=== PATIENT | female | born 1990 | race Caucasian/White ===

== ENCOUNTER 2019-05-01 12:46 | Emergency (ER) | payer MEDICAID ==
[~2019-05-01] VITALS: Ht 170.2 cm; Wt 86.2 kg
[~2019-05-01 12:46] MED LIST: PREN27TA7 PO
[2019-05-01 13:23] VITALS: BP 111/76
== END 2019-05-01 14:37 | disposition home or self-care (01) ==
LOC: ER 12:46
DX: M25.571 Pain in right ankle and joints of right foot (principal); Z88.0 Allergy status to penicillin
CPT/HCPCS: 73610

== ENCOUNTER 2019-05-27 01:42 | Emergency (ER) | payer MEDICAID ==
[~2019-05-27] VITALS: Ht 170.2 cm; Wt 93.0 kg
[2019-05-27] MEDS ORDERED: IBUPROFEN 600 MG TAB PO ONE (02:30)
[2019-05-27] MEDS ORDERED: KETOROLAC TROMETH 60MG/2ML VIAL IM ONE (04:15)
[2019-05-27] MEDS ORDERED: methylPREDNISolone SOD SUCC 125 MG/2 ML VL IM ONE (04:15)
[2019-05-27 04:25] VITALS: BP 114/77
== END 2019-05-27 05:10 | disposition home or self-care (01) ==
LOC: ER 01:42
DX: S46.911A Strain of unspecified muscle, fascia and tendon at shoulder and upper arm level, right arm, initial encounter (principal); Z88.0 Allergy status to penicillin; X58.XXXA Exposure to other specified factors, initial encounter; Y93.89 Activity, other specified; Y92.89 Other specified places as the place of occurrence of the external cause; Y99.8 Other external cause status
CPT/HCPCS: 73030; 73060; 96372; 99283; J1885; J2930

== ENCOUNTER 2020-09-22 13:45 | Emergency (ER) | payer MEDICAID ==
[~2020-09-22] VITALS: Ht 170.2 cm; Wt 93.0 kg
[2020-09-22 14:57] LABS: Basophils # (auto) 0 10 ^3/uL (0-0.2); Basophils % (auto) 0.3 % (0.0-2.0); Eosinophils # (auto) 0 10 ^3/uL (0-0.8); Eosinophils % (auto) 0.6 % (0.0-7.0); Hematocrit 42.9 % (36.0-46.0); Hemoglobin 15.1 g/dL (12.2-16.2); Lymphocytes # (auto) 1.6 10 ^3/uL (0.4-5.4); Mean Corpuscular Hemoglobin 32.4 pg (28.0-32.0); Mean Corpuscular Hgb Conc. 35.1 g/dL (32.0-36.0); Mean Corpuscular Volume 92.2 fL (80.0-100.0); Monocytes # (auto) 0.3 10 ^3/uL (0-1.3); Monocytes % (auto) 5.7 % (0.0-12.0); Neutrophils # (auto) 3.5 10 ^3/uL (1.6-8.6); Neutrophils % (auto) 63.4 % (37.0-80.0); Platelet Count (auto) 286 10^3/uL (140-450); Red Blood Cells 4.65 10^6/uL (4.0-5.20); Red Cell Distribution Width 13.8 % (11.8-14.3); White Blood Cell 5.5 10^3/uL (4.4-10.8)
[2020-09-22 15:10] LABS: Albumin 4.3 g/dL (3.4-5.0); Calcium 9.2 mg/dL (8.5-10.1); Potassium 3.8 mmol/L (3.5-5.1)
[2020-09-22 15:13] LABS: BUN/Creatinine Ratio 13.3; Bilirubin, Total 0.9 mg/dL (0.2-1.0); Total Protein 8.4 g/dL (6.4-8.2)
[2020-09-22 15:23] VITALS: BP 138/78
[2020-09-22] MEDS ORDERED: hydrOXYzine 25 MG TAB or CAP PO ONE (15:45)
== END 2020-09-22 16:26 | disposition home or self-care (01) ==
LOC: ER 13:48
DX: F43.0 Acute stress reaction (principal); Z88.0 Allergy status to penicillin; Z79.899 Other long term (current) drug therapy; Z20.822 Contact with and (suspected) exposure to COVID-19
CPT/HCPCS: 36415; 71045; 80053; 84484; 85025; 87426; 93005; 99285; C9803; U0003

== ENCOUNTER 2020-10-08 00:46 | Emergency (ER) | payer MEDICAID ==
[~2020-10-08] VITALS: Ht 170.2 cm; Wt 90.3 kg
[2020-10-08 02:14] LABS: Basophils # (auto) 0 10 ^3/uL (0-0.2); Basophils % (auto) 0.4 % (0.0-2.0); Eosinophils # (auto) 0.1 10 ^3/uL (0-0.8); Hematocrit 39.1 % (36.0-46.0); Hemoglobin 13.5 g/dL (12.2-16.2); Lymphocytes # (auto) 1.7 10 ^3/uL (0.4-5.4); Lymphocytes % (auto) 18.3 % (10.0-50.0); Mean Corpuscular Hemoglobin 31.7 pg (28.0-32.0); Mean Corpuscular Hgb Conc. 34.6 g/dL (32.0-36.0); Mean Corpuscular Volume 91.6 fL (80.0-100.0); Monocytes # (auto) 0.5 10 ^3/uL (0-1.3); Monocytes % (auto) 5.7 % (0.0-12.0); Neutrophils # (auto) 6.9 10 ^3/uL (1.6-8.6); Neutrophils % (auto) 74.6 % (37.0-80.0); Platelet Count (auto) 370 10^3/uL (140-450); Red Blood Cells 4.27 10^6/uL (4.0-5.20); Red Cell Distribution Width 13.3 % (11.8-14.3); White Blood Cell 9.3 10^3/uL (4.4-10.8)
[2020-10-08 02:35] LABS: Alanine Aminotransferase 40 U/L (13-56); Albumin 4.2 g/dL (3.4-5.0); Anion Gap 7 (5-15); Aspartate Aminotransferase 15 U/L (15-37); Blood Urea Nitrogen 15 mg/dL (7-18); Calcium 8.8 mg/dL (8.5-10.1); Carbon Dioxide 26 mmol/L (21-32); Chloride 105 mmol/L (98-107); GFR African American 85 mL/min; GFR Non-African American 70 mL/min; Glucose 91 mg/dL (74-106); Potassium 3.6 mmol/L (3.5-5.1); Sodium 138 mmol/L (136-145)
[2020-10-08 02:40] LABS: Alkaline Phosphatase 55 U/L (45-117); Bilirubin, Total 0.4 mg/dL (0.2-1.0)
[2020-10-08 07:03] VITALS: BP 118/75
== END 2020-10-08 07:56 | disposition home or self-care (01) ==
LOC: ER 00:46
DX: R07.89 Other chest pain (principal); F41.9 Anxiety disorder, unspecified; Z88.0 Allergy status to penicillin; Z79.899 Other long term (current) drug therapy
CPT/HCPCS: 36415; 80053; 83880; 84484; 85025; 93005

== ENCOUNTER 2020-10-11 19:32 | Inpatient (IN) | payer MEDICAID ==
[~2020-10-11] VITALS: Ht 170.2 cm; Wt 94.1 kg
[2020-10-11 22:06] LABS: Basophils # (auto) 0 10 ^3/uL (0-0.2); Basophils % (auto) 0.6 % (0.0-2.0); Eosinophils # (auto) 0.1 10 ^3/uL (0-0.8); Eosinophils % (auto) 1.5 % (0.0-7.0); Hematocrit 37.8 % (36.0-46.0); Lymphocytes % (auto) 25.4 % (10.0-50.0); Mean Corpuscular Hemoglobin 31.7 pg (28.0-32.0); Mean Corpuscular Hgb Conc. 34.4 g/dL (32.0-36.0); Mean Corpuscular Volume 92.1 fL (80.0-100.0); Monocytes # (auto) 0.4 10 ^3/uL (0-1.3); Monocytes % (auto) 5.8 % (0.0-12.0); Neutrophils # (auto) 5.1 10 ^3/uL (1.6-8.6); Neutrophils % (auto) 66.7 % (37.0-80.0); Red Blood Cells 4.11 10^6/uL (4.0-5.20); Red Cell Distribution Width 13.2 % (11.8-14.3); White Blood Cell 7.7 10^3/uL (4.4-10.8)
[2020-10-11 22:23] LABS: Albumin 3.9 g/dL (3.4-5.0); Calcium 9.1 mg/dL (8.5-10.1); Potassium 3.6 mmol/L (3.5-5.1)
[2020-10-11 22:26] LABS: BUN/Creatinine Ratio 11.5; Bilirubin, Total 0.4 mg/dL (0.2-1.0); Total Protein 7.6 g/dL (6.4-8.2)
[2020-10-11] MEDS ORDERED: MORPHINE SULFATE 4 MG/ML SYR/VIAL IV ONE (22:30)
[2020-10-11] MEDS ORDERED: ONDANSETRON HCL 4 MG/2 ML VIAL IV ONE (22:30)
[2020-10-12] MEDS: SODIUM CHLORIDE 0.9% 1,000 ML IV SCH ×2 (02:15→14:26)
[2020-10-12] MEDS: metroNIDAZOLE 500MG/100ML 100 ML IV SCH ×3 (06:00→21:19)
[2020-10-12 08:56] LABS: Urine Bacteria MOD /hpf (None Seen); Urine Blood 1+ /uL (Negative); Urine Mucus FEW (None Seen); Urine Specific Gravity 1.028 (1.001-1.035); Urine WBC 49 /hpf (0 - 5)
[2020-10-12] MEDS: PANTOPRAZOLE 40 MG/10 ML VIAL INJ IV SCH (10:22)
[2020-10-12] MEDS: MORPHINE SULFATE 4 MG/ML SYR/VIAL IV PRN (10:52)
[2020-10-12] MEDS: ONDANSETRON HCL 4 MG/2 ML VIAL IV PRN (10:53)
[2020-10-12 11:10] LABS: INR 1.18 (0.9-1.15); Partial Thromboplastin Time 30.8 sec (23.0-31.2)
[2020-10-12] MEDS ORDERED: FLEET MINERAL OIL ENEMA 133 ML PR ONE (12:30)
[2020-10-12 13:15] VITALS: BP 125/74
[2020-10-12 13:20] VITALS: BP 125/74
[2020-10-12 13:42] LABS: INR 1.18 (0.9-1.15); Partial Thromboplastin Time 31.7 sec (23.0-31.2)
[2020-10-12 17:02] VITALS: BP 114/59
[2020-10-12 22:12] VITALS: BP 109/77
[2020-10-12] MEDS ORDERED: TEMAZEPAM 15 MG CAP PO ONE (22:15)
[2020-10-13] MEDS: SODIUM CHLORIDE 0.9% 1,000 ML IV SCH ×2 (04:44→13:33)
[2020-10-13 05:03] VITALS: BP 122/71
[2020-10-13] MEDS: metroNIDAZOLE 500MG/100ML 100 ML IV SCH ×3 (06:06→22:23)
[2020-10-13] MEDS ORDERED: LORA-655 PO (06:48)
[2020-10-13 07:18] LABS: Basophils # (auto) 0 10 ^3/uL (0-0.2); Basophils % (auto) 0.7 % (0.0-2.0); Eosinophils # (auto) 0.1 10 ^3/uL (0-0.8); Eosinophils % (auto) 1.8 % (0.0-7.0); Hematocrit 33.6 % (36.0-46.0); Hemoglobin 12.1 g/dL (12.2-16.2); Lymphocytes # (auto) 1.5 10 ^3/uL (0.4-5.4); Lymphocytes % (auto) 25.2 % (10.0-50.0); Mean Corpuscular Hemoglobin 32.7 pg (28.0-32.0); Mean Corpuscular Volume 90.8 fL (80.0-100.0); Monocytes # (auto) 0.4 10 ^3/uL (0-1.3); Monocytes % (auto) 7.6 % (0.0-12.0); Neutrophils # (auto) 3.8 10 ^3/uL (1.6-8.6); Neutrophils % (auto) 64.7 % (37.0-80.0); Nucleated Red Blood Cells % 0.1 %; Red Cell Distribution Width 12.9 % (11.8-14.3); White Blood Cell 5.8 10^3/uL (4.4-10.8)
[2020-10-13 07:40] LABS: Calcium 8.4 mg/dL (8.5-10.1); Potassium 3.8 mmol/L (3.5-5.1)
[2020-10-13 07:44] LABS: BUN/Creatinine Ratio 7.4
[2020-10-13 08:30] VITALS: BP 112/64
[2020-10-13] MEDS: PANTOPRAZOLE 40 MG/10 ML VIAL INJ IV SCH (10:03)
[2020-10-13 12:30] VITALS: BP 111/68
[2020-10-13 17:00] VITALS: BP 133/68
[2020-10-13 22:00] VITALS: BP 119/72
[2020-10-13] MEDS: ONDANSETRON HCL 4 MG/2 ML VIAL IV PRN (22:24)
[2020-10-14] MEDS: MORPHINE SULFATE 4 MG/ML SYR/VIAL IV PRN ×2 (00:33→08:00)
[2020-10-14] MEDS: SODIUM CHLORIDE 0.9% 1,000 ML IV SCH (01:19)
[2020-10-14 05:00] VITALS: BP 106/64
[2020-10-14] MEDS: metroNIDAZOLE 500MG/100ML 100 ML IV SCH ×2 (05:39→07:59)
[2020-10-14] MEDS: PANTOPRAZOLE 40 MG/10 ML VIAL INJ IV SCH (07:59)
[2020-10-14] MEDS: ONDANSETRON HCL 4 MG/2 ML VIAL IV PRN (08:00)
[2020-10-14 08:30] VITALS: BP 102/66
[2020-10-14] MEDS ORDERED: PANT40TA2 PO (11:22)
[2020-10-14] MEDS ORDERED: METR500T PO (11:22)
[2020-10-14 12:00] VITALS: BP 103/67
[2020-10-14] MEDS ORDERED: levoFLOXacin 500MG 100 ML IV ONE (16:00)
[2020-10-15] MEDS ORDERED: levoFLOXacin 500MG 100 ML IV SCH (10:00)
== END 2020-10-14 12:55 | disposition home or self-care (01) ==
LOC: ER 19:33 → OVERFLOW 10-12 02:10 → WEST WING 10-12 12:21 → EAST 10-12 19:28
PROVIDERS: ADMIT Nurse Practitioner; ATTEND Internal Medicine Pulmonary Disease
DX: K80.70 Calculus of gallbladder and bile duct without cholecystitis without obstruction (principal); U07.1 COVID-19; E66.9 Obesity, unspecified; K59.00 Constipation, unspecified; Z68.29 Body mass index [BMI] 29.0-29.9, adult; Z88.0 Allergy status to penicillin; Z80.3 Family history of malignant neoplasm of breast; Z83.49 Family history of other endocrine, nutritional and metabolic diseases; Z90.721 Acquired absence of ovaries, unilateral; F41.9 Anxiety disorder, unspecified
CPT/HCPCS: 36415; 74176; 76705; 78226; 80048; 80053; 81001; 81025; 82150; 83690; 85025; 85610; 85730; 86850; 86900; 86901; 87086; 87426; 96374; 96375; C9113; G0378; J2405; J3490

== ENCOUNTER 2020-10-21 19:22 | Emergency (ER) | payer MEDICAID ==
[~2020-10-21] VITALS: Ht 170.2 cm; Wt 86.2 kg
[~2020-10-21 19:22] MED LIST changes: +LORA-655 PO; +METR500T PO; +PANT40TA2 PO
[2020-10-21 23:33] LABS: Urine Amorphous Crystal FEW /hpf (None Seen); Urine Bacteria FEW /hpf (None Seen); Urine Blood 1+ /uL (Negative); Urine Specific Gravity 1.021 (1.001-1.035); Urine WBC 5 /hpf (0 - 5)
[2020-10-22] MEDS ORDERED: cefTRIAXone 1GM/50ML D5W 50 ML IV ONE
[2020-10-22 02:11] VITALS: BP 125/79
== END 2020-10-22 03:11 | disposition home or self-care (01) ==
LOC: ER 19:22
DX: K80.20 Calculus of gallbladder without cholecystitis without obstruction (principal); F12.10 Cannabis abuse, uncomplicated; Z88.0 Allergy status to penicillin; Z90.49 Acquired absence of other specified parts of digestive tract
CPT/HCPCS: 81001; 87086; 96365; 99284; J0696

== ENCOUNTER 2020-11-09 20:20 | Inpatient (IN) | payer MEDICAID ==
[~2020-11-09] VITALS: Ht 170.2 cm; Wt 91.9 kg
[2020-11-09 21:16] LABS: Basophils # (auto) 0 10 ^3/uL (0-0.2); Basophils % (auto) 0.5 % (0.0-2.0); Eosinophils # (auto) 0.1 10 ^3/uL (0-0.8); Hematocrit 39.3 % (36.0-46.0); Hemoglobin 13.4 g/dL (12.2-16.2); Lymphocytes # (auto) 1.7 10 ^3/uL (0.4-5.4); Mean Corpuscular Hemoglobin 31.1 pg (28.0-32.0); Mean Corpuscular Hgb Conc. 34.2 g/dL (32.0-36.0); Mean Corpuscular Volume 90.9 fL (80.0-100.0); Monocytes # (auto) 0.4 10 ^3/uL (0-1.3); Monocytes % (auto) 4.9 % (0.0-12.0); Neutrophils # (auto) 6.6 10 ^3/uL (1.6-8.6); Neutrophils % (auto) 74.6 % (37.0-80.0); Red Blood Cells 4.32 10^6/uL (4.0-5.20); Red Cell Distribution Width 13.1 % (11.8-14.3); White Blood Cell 8.8 10^3/uL (4.4-10.8)
[2020-11-09 21:33] LABS: Albumin 4.3 g/dL (3.4-5.0); Calcium 8.9 mg/dL (8.5-10.1); Magnesium 2.2 mg/dL (1.6-2.6); Potassium 3.5 mmol/L (3.5-5.1)
[2020-11-09 21:46] LABS: BUN/Creatinine Ratio 12.4; Bilirubin, Total 0.6 mg/dL (0.2-1.0)
[2020-11-09 22:24] LABS: INR 1.07 (0.9-1.15)
[2020-11-09 22:45] LABS: Urine Bacteria NONE SEEN /hpf (None Seen); Urine Blood 1+ /uL (Negative); Urine Specific Gravity 1.003 (1.001-1.035); Urine WBC <1 /hpf (0 - 5)
[2020-11-09] MEDS ORDERED: MORPHINE SULFATE 4 MG/ML SYR/VIAL IV PRN (23:15)
[2020-11-09] MEDS ORDERED: SODIUM CHLORIDE 0.9% 1,000 ML IV SCH (23:15)
[2020-11-09] MEDS ORDERED: MORPHINE SULF INJ 2 MG/ML SYRINGE 1ML ONE (23:48)
[2020-11-09] MEDS ORDERED: metroNIDAZOLE 500MG/100ML 100 ML IV ONE (23:48)
[2020-11-09] MEDS: metroNIDAZOLE 500MG/100ML 100 ML IV SCH (23:55)
[2020-11-10] VITALS (7 sets, daily range): BP systolic 102–113; BP diastolic 59–86
[2020-11-10] MEDS: metroNIDAZOLE 500MG/100ML 100 ML IV SCH ×2 (06:32→22:19)
[2020-11-10 09:27] LABS: Basophils # (auto) 0 10 ^3/uL (0-0.2); Basophils % (auto) 0.4 % (0.0-2.0); Eosinophils # (auto) 0.1 10 ^3/uL (0-0.8); Eosinophils % (auto) 1.5 % (0.0-7.0); Hematocrit 37.1 % (36.0-46.0); Hemoglobin 12.7 g/dL (12.2-16.2); Lymphocytes # (auto) 1.4 10 ^3/uL (0.4-5.4); Lymphocytes % (auto) 23.9 % (10.0-50.0); Mean Corpuscular Hemoglobin 30.9 pg (28.0-32.0); Mean Corpuscular Hgb Conc. 34.2 g/dL (32.0-36.0); Mean Corpuscular Volume 90.3 fL (80.0-100.0); Monocytes # (auto) 0.4 10 ^3/uL (0-1.3); Monocytes % (auto) 7.5 % (0.0-12.0); Neutrophils # (auto) 3.8 10 ^3/uL (1.6-8.6); Neutrophils % (auto) 66.7 % (37.0-80.0); Red Blood Cells 4.11 10^6/uL (4.0-5.20); Red Cell Distribution Width 13.1 % (11.8-14.3); White Blood Cell 5.7 10^3/uL (4.4-10.8)
[2020-11-10] MEDS ORDERED: PANTOPRAZOLE 40 MG/10 ML VIAL INJ IV SCH (10:00)
[2020-11-10 10:46] LABS: Potassium 3.8 mmol/L (3.5-5.1)
[2020-11-10 11:11] LABS: BUN/Creatinine Ratio 10.1; Calcium 8.6 mg/dL (8.5-10.1)
[2020-11-10] MEDS ORDERED: ceFAZolin 1GM/50ML 0 ML IV ONE (13:05)
[2020-11-10] MEDS ORDERED: levoFLOXacin 500MG 100 ML IV ONE (13:08)
[2020-11-10] MEDS ORDERED: LIDOCAINE W/ EPINEPHRINE 1% 20ML VIAL ONE (13:34)
[2020-11-10] MEDS ORDERED: BUPIVACAINE 0.25% INJ 50ML VIAL ONE (13:34)
[2020-11-10] MEDS ORDERED: NEOSTIGMINE 1 MG/ML INJ (10mg/10ML VIAL) IV ONE (13:45)
[2020-11-10] MEDS ORDERED: GLYCOPYRROLATE 0.2 MG/ML 1ML VIAL IV ONE (13:45)
[2020-11-10] MEDS ORDERED: MEPERIDINE HCL (50 MG/ML) 1 ML VIAL ONE (13:59)
[2020-11-10] MEDS ORDERED: MIDAZOLAM HCL 1MG/1ML-2 ML VIAL ONE (13:59)
[2020-11-10] MEDS ORDERED: fentaNYL CITRATE 100 MCG/2 ML VL ONE (13:59)
[2020-11-10] MEDS ORDERED: hydrALAZINE HCL 20 MG/ML VL IV PRN (14:00)
[2020-11-10] MEDS ORDERED: MIDAZOLAM HCL 1MG/1ML-2 ML VIAL IV PRN ×2 (14:00)
[2020-11-10] MEDS ORDERED: fentaNYL CITRATE 100 MCG/2 ML VL IV PRN (14:00)
[2020-11-10] MEDS ORDERED: MORPHINE SULFATE 4 MG/ML SYR/VIAL IV PRN ×2 (14:00)
[2020-11-10] MEDS ORDERED: ONDANSETRON HCL 4 MG/2 ML VIAL IV PRN ×2 (14:00)
[2020-11-10] MEDS ORDERED: LABETALOL HCL 5 MG/ML 4ML SYRINGE IV PRN ×2 (14:00)
[2020-11-10] MEDS ORDERED: HYDROmorphone HCL 2 MG/ML VL IV PRN (14:00)
[2020-11-10] MEDS ORDERED: ePHEDrine SULFATE 50 MG/ML AMP IV PRN ×2 (14:00)
[2020-11-10] MEDS ORDERED: KETOROLAC TROMETH 30 MG/ML 1ML VIAL IV ONE ×2 (14:00)
[2020-11-10] MEDS ORDERED: DexAMETHasone SOD PHOS 10MG/1ML VIAL INJ ONE (14:09)
[2020-11-10] MEDS ORDERED: PROPOFOL 10 MG/ML 20 ML IV ONE (14:09)
[2020-11-10] MEDS ORDERED: ONDANSETRON HCL 4 MG/2 ML VIAL ONE (14:10)
[2020-11-10] MEDS ORDERED: ROCURONIUM 10MG/ML 10ML VIAL IV ONE (14:10)
[2020-11-10] MEDS: HYDROmorphone HCL 2 MG/ML VL IV PRN ×3 (15:13→15:35)
[2020-11-10] MEDS: CLINDAMYCIN 600MG IV 50 ML IV SCH (17:00)
[2020-11-10] MEDS: D5W/SOD CHL 0.45%/KCL 20MEQ 1,000 ML IV SCH (17:22)
[2020-11-10] MEDS: ONDANSETRON HCL 4 MG/2 ML VIAL IV PRN (20:25)
[2020-11-10] MEDS: HYDROcodone-ACET 5/325MG TAB PO PRN (23:51)
[2020-11-11] MEDS: D5W/SOD CHL 0.45%/KCL 20MEQ 1,000 ML IV SCH ×2 (01:00→11:02)
[2020-11-11] MEDS: CLINDAMYCIN 600MG IV 50 ML IV SCH (01:42)
[2020-11-11 05:08] VITALS: BP 107/64
[2020-11-11] MEDS: metroNIDAZOLE 500MG/100ML 100 ML IV SCH ×3 (05:29→22:22)
[2020-11-11 05:33] LABS: Basophils # (auto) 0 10 ^3/uL (0-0.2); Basophils % (auto) 0.1 % (0.0-2.0); Eosinophils # (auto) 0 10 ^3/uL (0-0.8); Hemoglobin 12.3 g/dL (12.2-16.2); Lymphocytes # (auto) 0.5 10 ^3/uL (0.4-5.4); Lymphocytes % (auto) 5.7 % (10.0-50.0); Mean Corpuscular Hemoglobin 30.8 pg (28.0-32.0); Mean Corpuscular Hgb Conc. 34.2 g/dL (32.0-36.0); Mean Corpuscular Volume 89.8 fL (80.0-100.0); Monocytes # (auto) 0.4 10 ^3/uL (0-1.3); Monocytes % (auto) 3.9 % (0.0-12.0); Neutrophils # (auto) 8.1 10 ^3/uL (1.6-8.6); Neutrophils % (auto) 90.3 % (37.0-80.0); Nucleated Red Blood Cells % 0.1 %; Red Blood Cells 4.01 10^6/uL (4.0-5.20); Red Cell Distribution Width 13.1 % (11.8-14.3)
[2020-11-11 05:49] LABS: Calcium 8.7 mg/dL (8.5-10.1); Potassium 4.6 mmol/L (3.5-5.1)
[2020-11-11 05:51] LABS: BUN/Creatinine Ratio 10.3; Bilirubin, Total 0.6 mg/dL (0.2-1.0)
[2020-11-11 09:00] VITALS: BP 111/70
[2020-11-11] MEDS ORDERED: cefTRIAXone 1GM/50ML D5W 50 ML IV ONE (10:00)
[2020-11-11] MEDS: HYDROcodone-ACET 5/325MG TAB PO PRN ×2 (11:02→22:49)
[2020-11-11 13:00] VITALS: BP 107/72
[2020-11-11 17:00] VITALS: BP 108/60
[2020-11-11 22:00] VITALS: BP 110/58
[2020-11-12] MEDS: ONDANSETRON HCL 4 MG/2 ML VIAL IV PRN (01:15)
[2020-11-12] MEDS: D5W/SOD CHL 0.45%/KCL 20MEQ 1,000 ML IV SCH ×2 (01:19→07:00)
[2020-11-12 05:00] VITALS: BP 108/65
[2020-11-12] MEDS: metroNIDAZOLE 500MG/100ML 100 ML IV SCH (06:04)
[2020-11-12] MEDS: HYDROcodone-ACET 5/325MG TAB PO PRN (06:04)
[2020-11-12 09:00] VITALS: BP 110/64
[2020-11-12] MEDS ORDERED: cefTRIAXone 1GM/50ML D5W 50 ML IV SCH (09:00)
[2020-11-12] MEDS ORDERED: IBUP400T22 PO (10:52)
[2020-11-12] MEDS ORDERED: CEPH-322 PO (10:55)
[2020-11-12] MEDS ORDERED: IBUPROFEN 400 MG TAB PO ONE (11:00)
[2020-11-12 12:13] VITALS: BP 99/62
[2020-11-12 13:00] VITALS: BP 109/71
== END 2020-11-12 14:32 | disposition home or self-care (01) | DRG 263 ==
LOC: ER 20:21 → OVERFLOW 23:04 → WEST WING 11-10 01:39 → EAST 11-10 19:45
PROVIDERS: ADMIT Nurse Practitioner; ATTEND Internal Medicine Nephrology
PROC: 0FT44ZZ Resection of Gallbladder, Percutaneous Endoscopic Approach (ICD-10-PCS; principal; 2020-11-10 13:52)
DX: K80.60 Calculus of gallbladder and bile duct with cholecystitis, unspecified, without obstruction (principal); U07.1 COVID-19; E66.01 Morbid (severe) obesity due to excess calories; F41.9 Anxiety disorder, unspecified; E78.00 Pure hypercholesterolemia, unspecified; Z80.3 Family history of malignant neoplasm of breast; Z90.721 Acquired absence of ovaries, unilateral; Z88.0 Allergy status to penicillin; Z79.899 Other long term (current) drug therapy; Z68.30 Body mass index [BMI] 30.0-30.9, adult
CPT/HCPCS: 36415; 71045; 76705; 80048; 80053; 81001; 82247; 83605; 83690; 83735; 84702; 85025; 85610; 86850; 86900; 86901; 87081; 87426; 93005; 96365; C9113; G0378; J0690; J0696; J1100; J1956; J2250; J2405; J2704; J3490

== ENCOUNTER 2021-01-10 15:36 | Emergency (ER) | payer MEDICAID ==
[~2021-01-10] VITALS: Ht 170.2 cm; Wt 86.2 kg
[~2021-01-10 15:36] MED LIST changes: +CEPH-322 PO; +IBUP400T22 PO; -LORA-655 PO; -METR500T PO; -PANT40TA2 PO; -PREN27TA7 PO
[2021-01-10 18:33] LABS: Hemoglobin 13.2 g/dL (12.2-16.2); White Blood Cell 7.9 10^3/uL (4.4-10.8)
[2021-01-10 18:48] LABS: Anion Gap 5 (5-15); Basophils # (auto) 0.1 10 ^3/uL (0-0.2); Basophils % (auto) 0.8 % (0.0-2.0); Blood Urea Nitrogen 13 mg/dL (7-18); Calcium 8.8 mg/dL (8.5-10.1); Carbon Dioxide 25 mmol/L (21-32); Chloride 109 mmol/L (98-107); Eosinophils # (auto) 0.1 10 ^3/uL (0-0.8); Eosinophils % (auto) 1.4 % (0.0-7.0); Glucose 96 mg/dL (74-106); Hematocrit 39.7 % (36.0-46.0); Lymphocytes % (auto) 24.6 % (10.0-50.0); Mean Corpuscular Hemoglobin 30.4 pg (28.0-32.0); Mean Corpuscular Hgb Conc. 33.3 g/dL (32.0-36.0); Mean Corpuscular Volume 91.4 fL (80.0-100.0); Monocytes # (auto) 0.5 10 ^3/uL (0-1.3); Monocytes % (auto) 5.8 % (0.0-12.0); Neutrophils # (auto) 5.4 10 ^3/uL (1.6-8.6); Neutrophils % (auto) 67.4 % (37.0-80.0); Nucleated Red Blood Cells % 0.1 %; Potassium 3.9 mmol/L (3.5-5.1); Red Blood Cells 4.35 10^6/uL (4.0-5.20); Red Cell Distribution Width 13.9 % (11.8-14.3); Sodium 139 mmol/L (136-145)
[2021-01-10 19:00] LABS: Alanine Aminotransferase 24 U/L (13-56); Alkaline Phosphatase 53 U/L (45-117); Aspartate Aminotransferase 11 U/L (15-37); Bilirubin, Total 0.8 mg/dL (0.2-1.0); GFR African American 84 mL/min; GFR Non-African American 70 mL/min; Total Protein 7.8 g/dL (6.4-8.2)
[2021-01-10 19:30] LABS: Urine Bacteria FEW /hpf (None Seen); Urine Blood 2+ /uL (Negative); Urine Mucus FEW (None Seen); Urine Specific Gravity 1.025 (1.001-1.035); Urine WBC 5 /hpf (0 - 5)
[2021-01-10] MEDS ORDERED: cefTRIAXone 1GM/50ML D5W 50 ML IV ONE (20:15)
[2021-01-10 21:04] VITALS: BP 134/70
== END 2021-01-10 21:05 | disposition home or self-care (01) ==
LOC: ER 15:36
DX: R07.89 Other chest pain (principal); F41.9 Anxiety disorder, unspecified; Z88.1 Allergy status to other antibiotic agents; Z88.2 Allergy status to sulfonamides; Z79.899 Other long term (current) drug therapy
CPT/HCPCS: 36415; 80053; 81001; 84484; 85025; 87086; 93005

== ENCOUNTER 2021-05-15 19:33 | Emergency (ER) | payer MEDICAID ==
[~2021-05-15] VITALS: Ht 170.2 cm; Wt 88.5 kg
[2021-05-15] MEDS ORDERED: ACETAMINOPHEN 325 MG TAB PO ONE (20:00)
[2021-05-16 00:33] LABS: Urine Bacteria FEW /hpf (None Seen); Urine Blood 1+ /uL (Negative); Urine Specific Gravity 1.009 (1.001-1.035); Urine WBC 4 /hpf (0 - 5)
[2021-05-16 02:51] VITALS: BP 126/65
== END 2021-05-16 02:35 | disposition home or self-care (01) ==
LOC: ER 19:35
DX: N39.0 Urinary tract infection, site not specified (principal); F41.9 Anxiety disorder, unspecified; Z90.49 Acquired absence of other specified parts of digestive tract; Z32.02 Encounter for pregnancy test, result negative; Z88.0 Allergy status to penicillin; Z88.1 Allergy status to other antibiotic agents
CPT/HCPCS: 81001; 81025

== ENCOUNTER 2021-09-21 20:14 | Emergency (ER) | payer MEDICAID ==
[~2021-09-21] VITALS: Ht 170.2 cm; Wt 91.2 kg
[2021-09-21 21:10] LABS: Basophils # (auto) 0 10 ^3/uL (0-0.2); Basophils % (auto) 0.5 % (0.0-2.0); Eosinophils # (auto) 0.1 10 ^3/uL (0-0.8); Eosinophils % (auto) 1.1 % (0.0-7.0); Hematocrit 35.9 % (36.0-46.0); Hemoglobin 12.5 g/dL (12.2-16.2); Lymphocytes % (auto) 22.3 % (10.0-50.0); Mean Corpuscular Hemoglobin 31.1 pg (28.0-32.0); Mean Corpuscular Hgb Conc. 34.8 g/dL (32.0-36.0); Mean Corpuscular Volume 89.5 fL (80.0-100.0); Monocytes # (auto) 0.4 10 ^3/uL (0-1.3); Monocytes % (auto) 4.2 % (0.0-12.0); Neutrophils # (auto) 6.3 10 ^3/uL (1.6-8.6); Neutrophils % (auto) 71.9 % (37.0-80.0); Nucleated Red Blood Cells % 0.1 %; Red Blood Cells 4.01 10^6/uL (4.0-5.20); White Blood Cell 8.8 10^3/uL (4.4-10.8)
[2021-09-21 21:30] LABS: Albumin 3.6 g/dL (3.4-5.0); BUN/Creatinine Ratio 13.5; Calcium 8.9 mg/dL (8.5-10.1); Potassium 3.9 mmol/L (3.5-5.1)
[2021-09-21 21:33] LABS: Bilirubin, Total 0.4 mg/dL (0.2-1.0)
[2021-09-21] MEDS ORDERED: DexAMETHasone SOD PHOS 10MG/1ML VIAL INJ PO ONE (22:30)
[2021-09-21 22:42] VITALS: BP 125/79
[2021-09-21] MEDS ORDERED: CLIN300C8 PO (22:48)
== END 2021-09-21 22:58 | disposition home or self-care (01) ==
LOC: ER 20:14
DX: J02.9 Acute pharyngitis, unspecified (principal); Z90.49 Acquired absence of other specified parts of digestive tract; Z79.1 Long term (current) use of non-steroidal anti-inflammatories (NSAID); Z79.899 Other long term (current) drug therapy; Z88.0 Allergy status to penicillin; Z88.1 Allergy status to other antibiotic agents
CPT/HCPCS: 36415; 71045; 80053; 84484; 85025; 93005; 99285; J1100